=== PATIENT | male | born 1955 | race Two or more races ===

== ENCOUNTER 2024-01-12 13:15 | Day surgery (SDC) | payer MEDICARE, MEDICAID, SELFPAY ==
[2024-01-12] VITALS (8 sets, daily range): BP systolic 116–155; BP diastolic 75–107; PULSE 63–84; RESP 14–21; TEMP 36.2–36.7; O2SAT 93–99; BMI 27.0
[2024-01-12] MEDS: MIDAZOLAM INJ 1 MG/ML VIAL 2 ML (ASD USE ONLY) 2 MG IV ×2 (14:36→14:43)
[2024-01-12] MEDS: DiphenhydrAMINE INJ 50 MG/ML VIAL 25 MG IV (14:36)
[2024-01-12] MEDS: fentaNYL CIT INJ 50 mCg/ML AMP 2ML (ASD USE ONLY) IV ×2 (14:36→14:43)
--- NOTE | 2024-01-12 14:51 | SUR.PHASEII ---
PATIENT INTO RECOVERY WITH NO ACUTE DISTRESS NOTED, V/S STABLE, PATIENT DENIES PAIN AND NAUSEA AT THIS TIME, PATIENT REPOSITIONED FOR COMFORT. REPORT RECEIVED FROM RADHA DESOUZA.
== END 2024-01-12 15:57 | disposition hospice, home (50) ==
PROVIDERS: PCP Nurse Practitioner Family; Referring Provider Specialist; Visit Provider Specialist
PROC: (CPT 43239; principal; 2024-01-12 12:15)
DX: K21.00 Gastro-esophageal reflux disease with esophagitis, without bleeding (principal); K22.2 Esophageal obstruction; K29.60 Other gastritis without bleeding; K29.50 Unspecified chronic gastritis without bleeding; K31.89 Other diseases of stomach and duodenum
CPT/HCPCS: 43248; 43239; A4649; C1769; J1200; J2250; J3010

== ENCOUNTER → 2024-02-01 | Outpatient (BNVA) | payer MEDICARE, MEDICAID, SELFPAY | END | disposition home or self-care (01) | PROVIDERS: PCP Nurse Practitioner Family; Referring Provider Nurse Practitioner Family; Visit Provider Urology | DX: N40.1 Benign prostatic hyperplasia with lower urinary tract symptoms (principal); N13.8 Other obstructive and reflux uropathy; R39.14 Feeling of incomplete bladder emptying; R35.0 Frequency of micturition; R39.198 Other difficulties with micturition; Z80.42 Family history of malignant neoplasm of prostate; I10 Essential (primary) hypertension; E78.5 Hyperlipidemia, unspecified; E66.9 Obesity, unspecified; Z68.30 Body mass index [BMI] 30.0-30.9, adult | CPT/HCPCS: 81003; 99212; G0463 ==

== ENCOUNTER → 2024-03-07 | Outpatient (CLI) | payer MEDICARE, MEDICAID, SELFPAY ==
--- NOTE | 2024-03-07 12:30 | XR_ITS ---
Examination: PA lateral chest 2 views TECHNIQUE: Upright PA lateral chest 2 views Exam date and time: March 07, 2024 1300 hours Comparison January 19, 2023 INDICATIONS: Shortness of breath beginning several months ago chronic hypertension history FINDINGS: Normal heart size Lungs are clear. Moderate thoracic spondylosis IMPRESSION: No active disease
== END | disposition home or self-care (01) ==
PROVIDERS: PCP Nurse Practitioner Family; Referring Provider Nurse Practitioner Family; Visit Provider Nurse Practitioner Family
DX: R06.02 Shortness of breath (principal); I10 Essential (primary) hypertension
CPT/HCPCS: 71046

== ENCOUNTER → 2024-04-03 | Outpatient (CLI) | payer MEDICARE, MEDICAID, SELFPAY ==
--- NOTE | 2024-04-03 11:30 | XR_ITS ---
Examination: Ultrasound soft tissue neck TECHNIQUE: Grayscale sonographic images soft tissue neck Exam date and time: April 03, 2024 1145 hours INDICATIONS: Patient states palpable lump with pain in the upper neck note is beginning 2 weeks ago FINDINGS: 17 x 4 x 7 mm lymph node in the lateral right neck 20 x 12 x 17 mm lymph node in the upper lateral left neck IMPRESSION: Significant cervical lymphadenopathy Recommend correlation with CT soft tissue neck post intravenous contrast follow-up
--- NOTE | 2024-04-03 11:30 | XR_ITS ---
Examination: Thyroid sonography complete TECHNIQUE: Grayscale sonographic images thyroid lobes are carful analysis Exam date and time: January 31, 2025 1148 hours INDICATIONS: Diagnosis nontoxic multinodular goiter, thyroid sonogram June 10, 2021 left thyroid nodule 9 x 7 x 9 mm FINDINGS: Right thyroid 4.3 x 1.7 x 1.5 cm No solid nodules Left thyroid 3.3 x 1.0 x 1.1 cm Lower pole solid nodule 6 x 5 x 7 mm IMPRESSION: Small lower pole left thyroid nodule again noted
== END | disposition home or self-care (01) ==
PROVIDERS: PCP Nurse Practitioner Family; Referring Provider Nurse Practitioner Family; Visit Provider Nurse Practitioner Family
DX: R59.0 Localized enlarged lymph nodes (principal); E04.1 Nontoxic single thyroid nodule
CPT/HCPCS: 76536

== ENCOUNTER → 2024-04-04 | Outpatient (BNVA) | payer MEDICARE, MEDICAID, SELFPAY | END | disposition home or self-care (01) | PROVIDERS: PCP Nurse Practitioner Family; Referring Provider Nurse Practitioner Family; Visit Provider Urology | DX: N40.1 Benign prostatic hyperplasia with lower urinary tract symptoms (principal); R39.12 Poor urinary stream; I10 Essential (primary) hypertension; E78.00 Pure hypercholesterolemia, unspecified; E03.9 Hypothyroidism, unspecified | CPT/HCPCS: 51741; 51798 ==

== ENCOUNTER → 2024-04-11 | Outpatient (CLI) | payer MEDICARE, MEDICAID, SELFPAY ==
[2024-04-11 09:42] LABS: Quantiferon-TB* See Sep Rpt
[2024-04-11 13:20] LABS: Cocci Serology, IgM Negative (Negative)
[2024-04-12 13:10] LABS: Cocci Serology, IgG Negative (Negative)
== END | disposition home or self-care (01) ==
PROVIDERS: PCP Nurse Practitioner Family; Referring Provider Nurse Practitioner Family; Visit Provider Nurse Practitioner Family
DX: R04.2 Hemoptysis (principal)
CPT/HCPCS: 36415; 86331; 86480; 86635

== ENCOUNTER → 2024-04-16 | Outpatient (BNVA) | payer MEDICARE, MEDICAID, SELFPAY | END | disposition home or self-care (01) | PROVIDERS: PCP Nurse Practitioner Family; Referring Provider Nurse Practitioner Family; Visit Provider Urology | DX: N40.1 Benign prostatic hyperplasia with lower urinary tract symptoms (principal); N13.8 Other obstructive and reflux uropathy; I10 Essential (primary) hypertension; E78.00 Pure hypercholesterolemia, unspecified; E03.9 Hypothyroidism, unspecified | CPT/HCPCS: 76872 ==

== ENCOUNTER → 2024-05-16 | Outpatient (CLI) | payer MEDICARE, MEDICAID, SELFPAY ==
--- NOTE | 2024-05-16 13:57 | XR_ITS ---
Examination: CT soft tissue neck, with intravenous contrast. 2-D coronal reconstructions. 2-D sagittal reconstructions. Date and time of exam :May 16, 2024 1422 hours INDICATIONS: Right neck lump and difficulty swallowing 2 months, diagnosis acute lymphadenitis. CTDI: vol (mGy):12.5 DLP: (mGycm):5 Technique: 1.25 mm axial sections of the neck of the obtained. Coronal and sagittal reconstructions have been obtained. Intravenous contrast administered 50 cc Isovue-370. Low dose protocols were performed. One or more of the following dose reduction techniques were used; automated exposure control, adjustment of the mA and/or KV according to patient size, use of iterative reconstruction technique. Findings: Minimal mucosal thickening in the maxillary antra Symmetrical nasopharynx oropharynx Symmetrical submandibular glands No pathologic cervical lymphadenopathy Thyroid lobes are not enlarged Normal epiglottis IMPRESSION: No pathologic lymphadenopathy Recommend repeat ultrasound soft tissue of any focal area of concern
== END | disposition home or self-care (01) ==
LOC: CCTX 13:41
PROVIDERS: PCP Nurse Practitioner Family; Referring Provider Nurse Practitioner Family; Visit Provider Nurse Practitioner Family
DX: L04.0 Acute lymphadenitis of face, head and neck (principal)
CPT/HCPCS: 70491; A4649; Q9967

== ENCOUNTER → 2025-01-21 | Outpatient (CLI) | payer MEDICARE, MEDICAID, SELFPAY ==
--- NOTE | 2025-01-21 09:30 | XR_ITS ---
EXAMINATION: Esophagram standard Fluoroscopy Soft tissue lateral neck single view Upright PA chest single view 15 spot fluoroscopic films of the esophagus Date and time: January 21, 2025, 0916 hours INDICATIONS: Diagnosis thyroid disease, difficulty swallowing, food stuck in the throat 5 years TECHNIQUE AND FINDINGS: Soft tissue lateral neck single view demonstrates normal esophagus, moderate osteopenia Upright PA chest normal heart size No mediastinal lymphadenopathy No pneumonia or pulmonary edema Patient swallowed thin barium with 15 spot fluoroscopic films of the esophagus obtained Primary peristaltic esophageal waves Moderate continuous gastroesophageal reflux No stricture at the gastroesophageal junction No constricting esophageal lesion Cooperation is not optimal limited swallowing IMPRESSION: Moderate continuous gastroesophageal reflux No esophageal lesion noted on this limited study If symptoms persist, repeat the study in 3 to 6 months
== END | disposition home or self-care (01) ==
LOC: SDIM 09:34
PROVIDERS: PCP Nurse Practitioner Family; Referring Provider Nurse Practitioner Family; Visit Provider Nurse Practitioner Family
DX: K21.9 Gastro-esophageal reflux disease without esophagitis (principal)
CPT/HCPCS: 74220; A4649